=== PATIENT | male | born 1975 | race Two or more races ===

== ENCOUNTER → 2017-06-26 | Emergency (ER) | payer MEDICAID, OTHER | END | disposition left against medical advice (07) | LOC: ER 03:29 | DX: H57.8 Other specified disorders of eye and adnexa (principal); Z53.21 Procedure and treatment not carried out due to patient leaving prior to being seen by health care provider ==

== ENCOUNTER 2018-05-11 14:35 | Emergency (ER) | payer MEDICAID ==
[~2018-05-11] VITALS: Ht 170.2 cm; Wt 97.5 kg
[2018-05-11 23:23] VITALS: BP 117/81
[2018-05-11] MEDS ORDERED: methylPREDNISolone SOD SUCC 125 MG/2 ML VL ONE (23:39)
[2018-05-11] MEDS ORDERED: KETOROLAC TROMETH 60MG/2ML VIAL IM ONE (23:45)
[2018-05-11] MEDS ORDERED: methylPREDNISolone SOD SUCC 125 MG/2 ML VL IM ONE (23:45)
== END 2018-05-12 00:53 | disposition home or self-care (01) ==
LOC: ER 14:40
DX: R07.0 Pain in throat (principal); F17.210 Nicotine dependence, cigarettes, uncomplicated; M54.2 Cervicalgia
CPT/HCPCS: 70360; 70490; 96372; 99284; J1885; J2930